=== PATIENT | female | born 1975 | race Caucasian/White ===

== ENCOUNTER 2017-05-05 03:12 | Emergency (ER) | payer OTHER ==
[~2017-05-05] VITALS: Ht 170.2 cm; Wt 68.0 kg
[2017-05-05] MEDS ORDERED: CLARITIN-D 241 EAC1 (03:24)
[2017-05-05] MEDS ORDERED: SINGULAIR 10 MG10 M1 PO (03:25)
[2017-05-05] MEDS ORDERED: DYMISTA NASAL S23 GM NASAL (03:25)
[2017-05-05] MEDS ORDERED: AFRIN15 ML NASAL (03:26)
[2017-05-05] MEDS ORDERED: LEVOFLOXACIN5 ML OPHTHALMIC (03:50)
[2017-05-05] MEDS ORDERED: OXYCODONE HCL 55 MG PO (03:50)
== END 2017-05-05 04:06 | disposition home or self-care (01) ==
LOC: ER 03:12
DX: S05.01XA Injury of conjunctiva and corneal abrasion without foreign body, right eye, initial encounter (principal); X58.XXXA Exposure to other specified factors, initial encounter; Y93.89 Activity, other specified; Y92.89 Other specified places as the place of occurrence of the external cause; Y99.8 Other external cause status